=== PATIENT | female | born 1955 | race Caucasian/White ===

== ENCOUNTER 2018-10-03 11:06 | Emergency (ER) | payer MEDICARE, MEDICAID ==
[2018-10-03] MEDS ORDERED: Morphine 4 MG/ML VIAL ONE ×2 (12:31→14:41)
[2018-10-03 12:41] LABS: #Eosinphils 0.2 thou/uL (0.0-0.7); #Lymphocytes 1.6 thou/uL (1.20-3.40); #Monocytes 0.7 thou/uL (0.11-0.59); #Neutrophils 7.1 thou/uL (1.40-6.50); %Basophils 0.4 % (0.0-1.0); %Eosinophils 2.3 % (0.0-10.0); %Lymphocytes 16.6 % (21.0-51.0); %Monocytes 7.6 % (0.0-10.0); %Neutrophils 73.1 % (42.0-75.0); Hemoglobin 12.7 g/dL (12.0-16.0); Mean Corpuscular HGB CONC 31.8 g/dL (32.0-36.0); Mean Corpuscular Hemoglobin 28.7 pg (27.0-31.0); Mean Corpuscular Volume 90.3 fL (78.0-98.0); Platelet Count 181 thou/uL (130-400); RBC Distribution Width 14.4 % (11.5-14.5); Red Blood Cell (RBC) Count 4.42 mill/uL (4.20-5.40); White Blood Cell (WBC) Count 9.7 thou/uL (4.8-10.8)
[2018-10-03 12:48] LABS: INR-International Normal Ratio 2.2; Prothrombin Time 24.3 SEC (12.0-14.7)
--- NOTE | 2018-10-03 12:48 | RAD ---
FRadiograph chest one view: 10/03/2018 at 12:42 PM HISTORY: 63-year-old female with dyspnea COMPARISON: 07/12/2018 FINDINGS: The previously demonstrated pulmonary alveolar edema is no longer present. Prominent interstitial mar kings may or may not represent mild pulmonary interstitial edema. However, there is diffuse pulmonary venous congestion, and the cardiomegaly remains. Loop recorder noted overlying left lower chest. No pneumothorax. No effacement of lateral costophrenic angles. IMPRESSION: Cardiomegaly and pulmonary venous congestion, and questionable mild pulmonary interstitial edema, are suggestive of at least mild congestive heart failure.
[2018-10-03 12:59] LABS: ALT (SGPT) 11 U/L (8-55); AST (SGOT) 9 U/L (5-34); Albumin 3.8 g/dL (3.4-4.8); Alkaline Phosphatase 111 U/L (40-150); Anion Gap 15 mmol/L (10-20); BUN (Urea Nitrogen) 13 mg/dL (9.8-20.1); Bilirubin, Total 0.8 mg/dL (0.2-1.2); CK (CPK) 25 U/L (29-168); Calc. Creatinine Clearance 0 mL/min (70-130); Calcium 9.2 mg/dL (7.8-10.44); Carbon Dioxide 27 mmol/L (23-31); Chloride 103 mmol/L (98-107); Digoxin 1.17 ng/mL (0.8-2.0); Estimated GFR-MDRD 61; Globulin 3.2 g/dL (2.4-3.5); Glucose 179 mg/dL (80-115); Potassium 4.3 mmol/L (3.5-5.1); Sodium 141 mmol/L (136-145)
[2018-10-03 13:19] LABS: Bilirubin Negative (Negative); Blood, Urine Trace (Negative); Clarity Clear (Clear); Glucose, Urine (Dipstick) Negative (Negative); Leukocyte Negative (Negative); Nitrite Negative (Negative); Protein, Urine (Dipstick) Negative (Neg-Trace); Specific Gravity, Urine 1.015 (1.005-1.030); Urobilinogen 0.2 mg/dL (0.2-1.0); pH, Urine 7.5 (5.0-9.0)
[2018-10-03 13:26] LABS: Bacteria/HPF Rare-Few HPF (None Seen); RBC/HPF 0-3 HPF (0-3); Squamous Epithelial 0-3 HPF (0-3); WBC/HPF None Seen HPF (0-3)
--- NOTE | 2018-10-03 13:30 | CT ---
FCT of the abdomen and pelvis: 10/03/2018 COMPARISON: None HISTORY: Fall, trauma, pain TECHNIQUE: Axial CT imaging at 5 mm intervals from lung bases through pubic symphysis without contras t media. Coronal reformatted imaging obtained. FINDINGS: The lack of contrast media limits assessment of the viscera, bowel, vascular structures, an d for lymphadenopathy. There is mild increased density within the posterior inferior left lower lobe, suggesting scarring and/or volume loss. No free intraperitoneal air. There is a tiny hypodensity measuring 5 mm within the anterior aspect of the left lobe of the liver, too small to characterize. No acute findings are noted within the liver, gallbladder, or spleen. The pancreas appears grossly unremarkable as does the right adrenal gland. There is a nodule within t he adrenal gland on the left, measuring 1.3 cm in transverse dimension, with Hounsfield units suggest ing a benign adrenal adenoma. There is a small exophytic lesion emanating from the upper pole of the left kidney, measuring approxi mately 1.1 cm, with Hounsfield units suggesting a simple cyst. No hydronephrosis or nephrolithiasis i s noted on either side. There is no evidence for obstructive uropathy on either side. There is a Blanco catheter in place. Trace fluid in the pelvic cul-de-sac noted on the right. Limited assessment of the bowel without contrast media demonstrates no evidence for inflammatory fneton ge or obstruction. Multifocal atherosclerotic calcification of the abdominal aorta and its branches n oted. No lymphadenopathy evident within the retroperitoneum. No widening of the pubic symphysis or the sacroiliac joints. No acute pelvic fracture. Neither hip ap pears dislocated. Evaluation of the imaged spine is better performed on dedicated spine CT examinations of the thoracic and lumbar spine also performed 10/03/2018. IMPRESSION: Multiple incidental findings as detailed above. No evidence for free intraperitoneal air, bowel obstruction, or obstructive uropathy.
--- NOTE | 2018-10-03 13:38 | CT ---
FCT of the lumbar spine: 10/03/2018 COMPARISON: None HISTORY: Fall, trauma, pain TECHNIQUE: Axial CT imaging at 2.5 mm intervals through the lumbar spine obtained with coronal and sa gittal reformatted imaging. FINDINGS: Mild increased density is noted within the imaged lung bases suggesting scarring and/or vol ume loss. There is multifocal atherosclerotic calcification of the abdominal aorta and its branches, not well c haracterized on this examination. Evaluation for central canal and/or neural foraminal stenosis is limited on routine CT examination. T here is no significant anterolisthesis or retrolisthesis noted within the lumbar spine. There is no widening of the sacroiliac joints. There is no acute fracture involving the sacrum. There is an age-indeterminate superior endplate fracture of T12 vertebral body, which is felt to like ly be acute in nature as there does appear to be a mild degree of anterior paraspinal soft tissue jose ma. There is minimal retropulsion at the superior endplate of T12 with a probable minimal degree of a ssociated central canal stenosis. T12-L1: No osseous cause of significant central canal or neural foraminal stenosis L1-2: Minimal disc bulge. Bilateral mild facet hypertrophy. Mild anterior osteophyte formation. No os seous cause of significant central canal or neural foraminal stenosis. L2-3: There is mild inferior endplate can cavity involving L2 suggesting inferior endplate fracture. This is likely old as no paraspinal soft tissue swelling is seen. Mild bilateral facet hypertrophy wi th mild bilateral neural foraminal stenosis. Mild posterior osteophyte formation with probable mild c entral canal stenosis L3-4: Bilateral facet hypertrophy with mild bilateral neural foraminal stenosis. No osseous cause of significant central canal stenosis L4-5: Disc space narrowing and mild posterior osteophyte. Bilateral facet hypertrophy, left greater t schmuacher right, with moderate left and mild right neural foraminal stenosis L5-S1: Mild bilateral facet hypertrophy with no osseous cause of significant central canal or neural foraminal stenosis. IMPRESSION: Findings suggesting an acute superior endplate fracture of T12 with minimal retropulsion. No definite acute fracture of the lumbar spine. Degenerative change. Please see above discussion.
--- NOTE | 2018-10-03 13:48 | CT ---
FCT thoracic spine noncontrast: 10/03/2018 HISTORY: 63-year-old female with traumatic mid back pain after fall. Unable to walk. FINDINGS: There is a lateral thoracic spine curvature. There is irregularity and mild depression of the superio r endplate of T12, with mild bony retropulsion which does not cause high-grade central spinal canal s tenosis. Fracture lucencies are visible. Overall loss of height is approximately 20%. No obvious mode rate sized or large hematoma in the prevertebral space, although there is probably mild contusion in the prevertebral space at this level. The rest of the thoracic vertebral body heights are maintained. No acute posterior displaced rib fracture identified. No pleural effusion. IMPRESSION: Acute, traumatic, mild burst fracture of T12 vertebra..
== END 2018-10-03 15:43 | disposition short-term general hospital (02) ==
LOC: MADERS 11:06
DX: S22.081A Stable burst fracture of T11-T12 vertebra, initial encounter for closed fracture (principal); E03.9 Hypothyroidism, unspecified; K21.9 Gastro-esophageal reflux disease without esophagitis; I48.91 Unspecified atrial fibrillation; E11.9 Type 2 diabetes mellitus without complications; I11.0 Hypertensive heart disease with heart failure; I50.9 Heart failure, unspecified; J44.9 Chronic obstructive pulmonary disease, unspecified; E78.5 Hyperlipidemia, unspecified; F20.9 Schizophrenia, unspecified; F31.9 Bipolar disorder, unspecified; Z87.891 Personal history of nicotine dependence; Z79.899 Other long term (current) drug therapy; Z79.82 Long term (current) use of aspirin; Z79.4 Long term (current) use of insulin; W19.XXXA Unspecified fall, initial encounter
CPT/HCPCS: 36415; 51702; 71045; 72128; 72131; 74176; 80053; 80162; 81003; 81015; 82550; 83880; 84443; 84484; 85025; 85610; 93005; 96374; 96376; J2270

== ENCOUNTER 2019-05-25 14:47 | Outpatient (CLI) | payer MEDICARE, MEDICAID | END 2019-05-25 14:48 | disposition home or self-care (01) | LOC: MADLABBHPM 14:47 | PROVIDERS: ATTEND Family Medicine | DX: I48.91 Unspecified atrial fibrillation (principal); I50.20 Unspecified systolic (congestive) heart failure; J44.9 Chronic obstructive pulmonary disease, unspecified | CPT/HCPCS: 87804 ==

== ENCOUNTER 2020-05-15 14:56 | Emergency (ER) | payer MEDICARE, OTHER ==
--- NOTE | 2020-05-15 15:41 | RAD ---
EXAM: Single view of the chest HISTORY: Cough COMPARISON: 05/12/2020 FINDINGS: Single view of the chest shows an enlarged cardiomediastinal silhouette. A e commerce manager ing device projects over the left chest wall. There are questionable airspace opacities projecting over both lower lobes. No acute osseous abnormality. IMPRESSION: 1. Possible bilateral lower lobe infiltrates 2. Cardiomegaly
[2020-05-15 15:53] LABS: #Basophils 0.1 thou/uL (0.0-0.2); #Eosinphils 0.4 thou/uL (0.0-0.7); #Lymphocytes 2.1 thou/uL (1.20-3.40); #Neutrophils 4.7 thou/uL (1.40-6.50); %Basophils 0.8 % (0.0-1.0); %Eosinophils 4.4 % (0.0-10.0); %Lymphocytes 25.5 % (21.0-51.0); %Monocytes 11.6 % (0.0-10.0); %Neutrophils 57.6 % (42.0-75.0); Hemoglobin 14.2 g/dL (12.0-16.0); Mean Corpuscular Hemoglobin 30.6 pg (27.0-31.0); Mean Corpuscular Volume 95.5 fL (78.0-98.0); Mean Platelet Volume 8.7 fL (7.4-10.4); Platelet Count 184 thou/uL (130-400); RBC Distribution Width 13.5 % (11.5-14.5); Red Blood Cell (RBC) Count 4.66 mill/uL (4.20-5.40); White Blood Cell (WBC) Count 8.1 thou/uL (4.8-10.8)
[2020-05-15 16:08] LABS: ALT (SGPT) 25 U/L (8-55); AST (SGOT) 16 U/L (5-34); Albumin 3.8 g/dL (3.4-4.8); Alkaline Phosphatase 71 U/L (40-110); Anion Gap 20 mmol/L (10-20); BUN (Urea Nitrogen) 36 mg/dL (9.8-20.1); Bilirubin, Total 0.4 mg/dL (0.2-1.2); CK (CPK) 39 U/L (29-168); Calc. Creatinine Clearance 0 mL/min (70-130); Carbon Dioxide 35 mmol/L (23-31); Chloride 91 mmol/L (98-107); Estimated GFR-MDRD 33; Globulin 3.5 g/dL (2.4-3.5); Glucose 300 mg/dL (80-115); Potassium 3.8 mmol/L (3.5-5.1); Protein, Total 7.3 g/dL (6.0-8.3); Sodium 142 mmol/L (136-145)
[2020-05-15 16:44] LABS: Bilirubin Negative (Negative); Blood, Urine Negative (Negative); Clarity Clear (Clear); Glucose, Urine (Dipstick) Negative (Negative); Ketone, Urine Negative (Negative); Leukocyte Negative (Negative); Nitrite Negative (Negative); Protein, Urine (Dipstick) Negative (Neg-Trace); Urobilinogen 0.2 mg/dL (Less than 2)
[2020-05-15 17:14] LABS: CKMB 1.5 ng/mL (0-6.6)
--- NOTE | 2020-05-15 17:46 | CT ---
CT THORAX NONCONTRAST: DATE: 05/15/2020 HISTORY: 64-year-old female with cough, chest pain, and abnormal chest radiograph COMPARISON: 01/02/2019 FINDINGS: Nonspecific mild hazy groundglass densities throughout the bilateral lower lobes and to a lesser degr ee minimally in left upper lobe. The findings are similar to the prior CT. The pattern is not typical for COVID-19 pneumonia. No major consolidation. No pleural effusion or pneumothorax. Cardiomegaly is again noted. Atherosclerosis and ectasia of thoracic aorta. Atherosclerosis of coronary arteries. Scattered minimally enlarged mediastinal lymph nodes, unchanged. Trachea and bilateral mainstem bronchi are patent and clear. IMPRESSION: 1) mild interstitial densities, nonspecific. One possibility is mild pulmonary interstitial edema. 2) cardiomegaly. 3) appearance is similar to 01/02/2019.
[2020-05-15] MEDS ORDERED: HYDROcodone/Acetaminophen 10/325 mg Tablet ONE (18:32)
== END 2020-05-15 23:46 ==
LOC: MADERS 14:56
DX: N10 Acute pyelonephritis (principal); E78.5 Hyperlipidemia, unspecified; E78.00 Pure hypercholesterolemia, unspecified; E03.9 Hypothyroidism, unspecified; K21.9 Gastro-esophageal reflux disease without esophagitis; I48.91 Unspecified atrial fibrillation; E11.9 Type 2 diabetes mellitus without complications; I05.0 Rheumatic mitral stenosis; F31.9 Bipolar disorder, unspecified; F20.9 Schizophrenia, unspecified; J44.9 Chronic obstructive pulmonary disease, unspecified; Z87.891 Personal history of nicotine dependence; Z79.4 Long term (current) use of insulin; Z79.899 Other long term (current) drug therapy; Z79.82 Long term (current) use of aspirin
CPT/HCPCS: 36415; 51701; 71045; 71250; 80053; 81003; 82550; 82553; 83605; 84484; 85025; 86140; 87086; 96365; 96366; J1956

== ENCOUNTER 2020-11-13 08:36 | Outpatient (CLI) | payer MEDICARE, MEDICAID ==
[2020-11-13 09:24] LABS: INR-International Normal Ratio 2.1; Prothrombin Time 23.9 sec (12.0-14.7)
== END 2020-11-13 08:37 | disposition home or self-care (01) ==
LOC: MADLAB 08:36
PROVIDERS: ATTEND Family Medicine
DX: Z51.81 Encounter for therapeutic drug level monitoring (principal); Z79.01 Long term (current) use of anticoagulants
CPT/HCPCS: 36415; 85610

== ENCOUNTER 2021-04-24 00:38 | Emergency (ER) | payer MEDICARE, MEDICAID ==
[2021-04-24] MEDS ORDERED: cefTRIAXone\\ROCEPHIN 2 GM VIAL ONE (02:33)
[2021-04-24 04:07] LABS: Bilirubin Negative (Negative); Blood, Urine Trace (Negative); Clarity Turbid (Clear); Glucose, Urine (Dipstick) Negative (Negative); Ketone, Urine Negative (Negative); Leukocyte Large (Negative); Nitrite Positive (Negative); Protein, Urine (Dipstick) Negative (Neg-Trace); Specific Gravity, Urine 1.015 (1.005-1.030); Urobilinogen 0.2 mg/dL (Less than 2); pH, Urine 6.5 (5.0-9.0)
[2021-04-24 04:08] LABS: Bacteria/HPF 4+ HPF (None Seen); WBC/HPF Greater than 50 HPF (0-3)
[2021-04-24 04:13] LABS: CKMB 0.8 ng/mL (0-6.6); Carbon Dioxide 27 mmol/L (23-31); Chloride 97 mmol/L (98-107); Potassium 3.4 mmol/L (3.5-5.1); Sodium 136 mmol/L (136-145)
[2021-04-24 04:14] LABS: ALT (SGPT) 17 U/L (8-55); AST (SGOT) 13 U/L (5-34); Albumin 3.7 g/dL (3.4-4.8); Alkaline Phosphatase 86 U/L (40-110); Anion Gap 15 mmol/L (10-20); BUN (Urea Nitrogen) 41 mg/dL (9.8-20.1); Bilirubin, Total 0.6 mg/dL (0.2-1.2); Calc. Creatinine Clearance 0 mL/min (70-130); Calcium 9.5 mg/dL (7.8-10.44); Globulin 3.7 g/dL (2.4-3.5); Glucose 206 mg/dL (80-115); Protein, Total 7.4 g/dL (5.8-8.1)
[2021-04-24 04:16] LABS: %Basophils 0.5 % (0.0-1.0); %Eosinophils 1.9 % (0.0-10.0); %Lymphocytes 14.5 % (21.0-51.0); %Monocytes 9.6 % (0.0-10.0); %Neutrophils 73.5 % (42.0-75.0); Hemoglobin 12.3 g/dL (12.0-16.0); Mean Corpuscular HGB CONC 32.9 g/dL (32.0-36.0); Mean Corpuscular Hemoglobin 30.7 pg (27.0-31.0); Mean Corpuscular Volume 93.2 fL (78.0-98.0); Mean Platelet Volume 8.9 fL (7.4-10.4); Platelet Count 200 thou/uL (130-400); RBC Distribution Width 13.9 % (11.5-14.5); White Blood Cell (WBC) Count 11.6 thou/uL (4.8-10.8)
[2021-04-24 04:17] LABS: #Basophils 0.1 thou/uL (0.0-0.2); #Eosinphils 0.2 thou/uL (0.0-0.7); #Lymphocytes 1.7 thou/uL (1.20-3.40); #Monocytes 1.1 thou/uL (0.11-0.59); #Neutrophils 8.5 thou/uL (1.40-6.50)
[2021-04-24 04:34] LABS: Lipase 14 U/L (8-78)
[2021-04-24] MEDS ORDERED: Sodium Chloride 0.9% 100 ML BAG ONE (05:54)
== END 2021-04-24 05:16 ==
LOC: MADERS 00:38
DX: N39.0 Urinary tract infection, site not specified (principal); L03.116 Cellulitis of left lower limb; I48.91 Unspecified atrial fibrillation; I11.0 Hypertensive heart disease with heart failure; I50.9 Heart failure, unspecified; E11.9 Type 2 diabetes mellitus without complications; Z79.4 Long term (current) use of insulin; K21.9 Gastro-esophageal reflux disease without esophagitis; J44.9 Chronic obstructive pulmonary disease, unspecified; I05.0 Rheumatic mitral stenosis; E83.42 Hypomagnesemia; E03.9 Hypothyroidism, unspecified; D64.9 Anemia, unspecified; Z87.891 Personal history of nicotine dependence; Z79.899 Other long term (current) drug therapy; Z79.01 Long term (current) use of anticoagulants; Z79.82 Long term (current) use of aspirin
CPT/HCPCS: 36415; 71045; 80053; 81003; 81015; 82553; 83605; 83690; 83880; 84484; 85025; 87077; 87086; 87186; 93005; 96365; J0696; J3490

== ENCOUNTER 2021-06-12 19:47 | Emergency (ER) | payer MEDICARE, MEDICAID ==
[2021-06-12] MEDS ORDERED: Furosemide 40 MG/4 ML VIAL ONE (20:39)
[2021-06-12 20:45] LABS: #Eosinphils 0.2 thou/uL (0.0-0.7); #Lymphocytes 1.7 thou/uL (1.20-3.40); #Monocytes 0.8 thou/uL (0.11-0.59); #Neutrophils 3.7 thou/uL (1.40-6.50); %Basophils 0.7 % (0.0-1.0); %Eosinophils 3.3 % (0.0-10.0); %Lymphocytes 25.7 % (21.0-51.0); %Monocytes 12.3 % (0.0-10.0); %Neutrophils 57.9 % (42.0-75.0); Hemoglobin 11.3 g/dL (12.0-16.0); Mean Corpuscular HGB CONC 32.2 g/dL (32.0-36.0); Mean Corpuscular Hemoglobin 30.9 pg (27.0-31.0); Mean Corpuscular Volume 96.1 fL (78.0-98.0); Mean Platelet Volume 7.6 fL (7.4-10.4); Platelet Count 171 thou/uL (130-400); RBC Distribution Width 16.2 % (11.5-14.5); Red Blood Cell (RBC) Count 3.65 mill/uL (4.20-5.40); White Blood Cell (WBC) Count 6.4 thou/uL (4.8-10.8)
[2021-06-12 20:56] LABS: INR-International Normal Ratio 1.5
[2021-06-12 20:58] LABS: PTT 36.3 sec (22.9-36.1)
[2021-06-12 21:08] LABS: ALT (SGPT) 19 U/L (8-55); AST (SGOT) 12 U/L (5-34); Albumin 3.7 g/dL (3.4-4.8); Alkaline Phosphatase 64 U/L (40-110); Anion Gap 13 mmol/L (10-20); BUN (Urea Nitrogen) 32 mg/dL (9.8-20.1); Bilirubin, Total 0.6 mg/dL (0.2-1.2); CK (CPK) 83 U/L (29-168); Calc. Creatinine Clearance 0 mL/min (70-130); Calcium 9.6 mg/dL (7.8-10.44); Carbon Dioxide 28 mmol/L (23-31); Chloride 103 mmol/L (98-107); Globulin 3.1 g/dL (2.4-3.5); Glucose 155 mg/dL (80-115); Potassium 4.2 mmol/L (3.5-5.1); Protein, Total 6.8 g/dL (5.8-8.1); Sodium 140 mmol/L (136-145)
[2021-06-12 21:31] LABS: CKMB 1.2 ng/mL (0-6.6)
== END 2021-06-13 00:38 ==
LOC: MADERS 19:47
DX: R07.89 Other chest pain (principal); I11.0 Hypertensive heart disease with heart failure; I50.9 Heart failure, unspecified; I89.0 Lymphedema, not elsewhere classified; E78.5 Hyperlipidemia, unspecified; E03.9 Hypothyroidism, unspecified; K21.9 Gastro-esophageal reflux disease without esophagitis; I48.91 Unspecified atrial fibrillation; J44.9 Chronic obstructive pulmonary disease, unspecified; D64.9 Anemia, unspecified; E11.9 Type 2 diabetes mellitus without complications; Z79.899 Other long term (current) drug therapy; Z79.82 Long term (current) use of aspirin; Z79.84 Long term (current) use of oral hypoglycemic drugs
CPT/HCPCS: 71045; 80053; 82550; 82553; 83880; 84484; 85025; 85610; 85730; 93005; 94760; 96374; J1940

== ENCOUNTER 2021-07-18 23:29 | Emergency (ER) | payer MEDICARE, MEDICAID ==
[2021-07-19 00:13] LABS: #Eosinphils 0.3 thou/uL (0.0-0.7); #Lymphocytes 1.2 thou/uL (1.20-3.40); %Basophils 0.5 % (0.0-1.0); %Eosinophils 2.8 % (0.0-10.0); %Lymphocytes 11.6 % (21.0-51.0); %Monocytes 9.4 % (0.0-10.0); %Neutrophils 75.7 % (42.0-75.0); Mean Corpuscular HGB CONC 32.5 g/dL (32.0-36.0); Mean Corpuscular Hemoglobin 30.5 pg (27.0-31.0); Mean Corpuscular Volume 93.8 fL (78.0-98.0); Mean Platelet Volume 8.8 fL (7.4-10.4); Platelet Count 183 thou/uL (130-400); RBC Distribution Width 14.7 % (11.5-14.5); Red Blood Cell (RBC) Count 3.95 mill/uL (4.20-5.40); White Blood Cell (WBC) Count 10.6 thou/uL (4.8-10.8)
[2021-07-19] MEDS ORDERED: Cefepime 2 GM VIAL ONE (00:15)
[2021-07-19 00:59] LABS: ALT (SGPT) 15 U/L (8-55); AST (SGOT) 9 U/L (5-34); Albumin 3.4 g/dL (3.4-4.8); Alkaline Phosphatase 74 U/L (40-110); Anion Gap 17 mmol/L (10-20); BUN (Urea Nitrogen) 32 mg/dL (9.8-20.1); Bilirubin, Total 0.5 mg/dL (0.2-1.2); Calc. Creatinine Clearance 0 mL/min (70-130); Calcium 8.9 mg/dL (7.8-10.44); Carbon Dioxide 24 mmol/L (23-31); Chloride 99 mmol/L (98-107); Globulin 3.6 g/dL (2.4-3.5); Glucose 215 mg/dL (80-115); Potassium 3.7 mmol/L (3.5-5.1); Sodium 136 mmol/L (136-145)
[2021-07-19] MEDS ORDERED: Furosemide 20 MG/2 ML VIAL ONE (00:59)
[2021-07-19] MEDS ORDERED: Furosemide 40 MG TAB ONE (01:00)
[2021-07-19] MEDS ORDERED: Metoprolol Tartrate 50 MG TAB ONE (01:01)
== END 2021-07-19 02:40 ==
LOC: MADERS 23:29
DX: I48.91 Unspecified atrial fibrillation (principal); R06.02 Shortness of breath; E87.70 Fluid overload, unspecified; E78.5 Hyperlipidemia, unspecified; E03.9 Hypothyroidism, unspecified; K21.9 Gastro-esophageal reflux disease without esophagitis; I11.0 Hypertensive heart disease with heart failure; I50.9 Heart failure, unspecified; E11.9 Type 2 diabetes mellitus without complications; J44.9 Chronic obstructive pulmonary disease, unspecified; Z87.891 Personal history of nicotine dependence
CPT/HCPCS: 71045; 80053; 83735; 83880; 84484; 85025; 93005; J0692; J1940